=== PATIENT | female | born 1985 ===

== ENCOUNTER 2021-11-02 01:41 | Emergency (ER) | payer SELFPAY ==
[2021-11-02 02:28] LABS: Basophils % (Auto) 0.6 % (0.0-1.8); Eosinophils # (Auto) 0.1 K/mm3 (0.0-0.4); Eosinophils % (Auto) 1.5 % (0.0-4.3); Hematocrit 46.3 % (30.3-42.9); Hemoglobin 15.2 gm/dl (10.1-14.3); Lymphocytes # (Auto) 1.3 K/mm3 (1.2-5.4); Lymphocytes % (Auto) 25.2 % (13.4-35.0); Mean Corpuscular HGB Conc 33 % (30-34); Mean Corpuscular Volume 103 fl (79-97); Monocytes # (Auto) 0.5 K/mm3 (0.0-0.8); Monocytes % (Auto) 9.6 % (0.0-7.3); Platelet Count 235 K/mm3 (140-440); Red Blood Count 4.51 M/mm3 (3.65-5.03); Red Cell Distribution Width 13.1 % (13.2-15.2)
[2021-11-02 02:38] LABS: Bilirubin,Urine NEG (Negative); Blood,Urine NEG (Negative); Color,Urine Straw (Yellow); Protein,Urine <15 mg/dL mg/dL (Negative); RBC,Urine < 1.0 /HPF (0.0-6.0); Urobilinogen,Urine < 2.0 mg/dL (<2.0); WBC,Urine < 1.0 /HPF (0.0-6.0)
[2021-11-02 02:43] LABS: BUN/Creatinine Ratio 18; Blood Urea Nitrogen 14 mg/dL (7-17); Hemolysis Index 7
[2021-11-02 02:48] LABS: Amphetamine Screen,Urine PRESUMPTIVE NEGATIVE; Benzodiazepines Screen,Urine PRESUMPTIVE NEGATIVE; Cannabinoid Screen,Urine PRESUMPTIVE NEGATIVE; Cocaine Screen,Urine PRESUMPTIVE NEGATIVE; Methadone Screen,Urine PRESUMPTIVE POSITIVE; Opiate Screen,Urine PRESUMPTIVE NEGATIVE
--- NOTE | 2021-11-02 03:23 | Emergency Department Report ---
ED Psych HPI - General Chief Complaint: Psych Stated Complaint: SUICIDAL IDEATIONS Time Seen by Provider: 11/02/21 02:02 Source: police Mode of arrival: Ambulatory - History of Present Illness Initial Comments: Chief complaint: "1013" History obtained from police records clerk and patient HPI: This is a 36-year-old female with history of alcohol dependence, opioid dependence on methadone, anxiety and depression who presents in police custody on 101. and several children witnessed patient cutting herself left forearm with a toothbrush. She was destructive to the home. She was verbally aggressive to and several children. She denies suicidal ideation. Abnormal behavior prompted medical staff at the shelter to have patient transported to the emergency department for psychiatric care. Patient is very upset. She suspects that her is attempting to take away her home and her children. She also suspects that her is manipulating social situation for his own benefit. Patient denies suicidal or homicidal ideation. She denies hallucinations. She denies cutting herself although police records clerk states that child witnessed patient cutting her self. Medication: [facility] senior grants officer did not complete 1013 form prior to arrival. He requested a copy of our 1013 form. Complaint: other (Self-mutilation witnessed by children has been) -: This evening Associated Psychiatric Symptoms: other (Abnormal behavior) Quality: constant Improves With: none Worsens With: none Context: recent alcohol abuse, other (History of opioid abuse, previously took methadone) Treatments Prior to Arrival: other (Police transport) If Self Harm: self-inflicted trauma - Related Data Allergies Allergy/AdvReac Type Severity Reaction Status Date / Time No Known Allergies Allergy Verified 11/02/21 02:03 ED Review of Systems ROS: Stated complaint: SUICIDAL IDEATIONS Other details as noted in HPI Comment: All other systems reviewed and negative Constitutional: denies: chills, fever, malaise Respiratory: denies: cough, shortness of breath Gastrointestinal: denies: abdominal pain, nausea, vomiting Psychiatric: anxiety, depression ED Past Medical Hx - Past Medical History Previous Medical History?: Yes Hx Psychiatric Treatment: Yes (Anxiety, depression, alcohol dependence) Additional medical history: DRUG ABUSE - Surgical History Past Surgical History?: No - Social History Substance Use Type: Alcohol, Other (Opioid medication) ED Physical Exam - General Limitations: Altered Mental Status General appearance: alert, in no apparent distress, other (Pressured speech, agitated) - Head Head exam: Present: atraumatic, normocephalic - Eye Eye exam: Present: normal appearance - ENT ENT exam: Present: mucous membranes moist - Neck Neck exam: Present: normal inspection, full ROM, other (Superficial ecchymoses right neck) - Respiratory Respiratory exam: Present: normal lung sounds bilaterally. Absent: respiratory distress, wheezes, rales, rhonchi - Cardiovascular Cardiovascular Exam: Present: regular rate, normal rhythm, normal heart sounds. Absent: systolic murmur, diastolic murmur, rubs, gallop - GI/Abdominal GI/Abdominal exam: Present: soft, normal bowel sounds. Absent: distended, tenderness, guarding, rebound - Extremities Exam Extremities exam: Present: other (Linear excoriation superficial lacerations l eft forearm numerous) - Back Exam Back exam: Present: normal inspection - Neurological Exam Neurological exam: Present: alert, oriented X3 - Psychiatric Psychiatric exam: Present: agitated, other (Pressured speech agitated labile mood) - Skin Skin exam: Present: warm, dry, normal color. Absent: rash ED Course Vital Signs 11/02/21 05:19 Temperature 98.1 F Pulse Rate 81 Respiratory 19 Rate Blood Pressure 136/86 [Left] O2 Sat by Pulse 94 Oximetry ED Medical Decision Making - Lab Data Result diagrams: 11/02/21 02:13 11/02/21 02:13 Laboratory Results - last 24 hr 11/02/21 11/02/21 11/02/21 02:13 02:13 02:13 WBC 5.1 RBC 4.51 Hgb 15.2 H Hct 46.3 H MCV 103 H MCH 34 H MCHC 33 RDW 13.1 L Plt Count 235 Lymph % (Auto) 25.2 [place] % (Auto) 9.6 H Eos % (Auto) 1.5 Baso % (Auto) 0.6 Lymph # (Auto) 1.3 [place] # (Auto) 0.5 Eos # (Auto) 0.1 Baso # (Auto) 0.0 Seg Neutrophils % 63.1 Seg Neutrophils # 3.2 Sodium 143 Potassium 3.7 Chloride 103.3 Carbon Dioxide 25 Anion Gap 18 BUN 14 Creatinine 0.8 Estimated GFR > 60 BUN/Creatinine Ratio 18 Glucose 93 Calcium 9.0 HCG, Qual Urine Color Urine Turbidity Urine pH Ur Specific [place] Urine Protein Urine Glucose (UA) Urine Ketones Urine Blood Urine Nitrite Urine Bilirubin Urine Urobilinogen Ur Leukocyte Esterase Urine WBC (Auto) Urine RBC (Auto) U Epithel Cells (Auto) Salicylates < 0.3 L Urine Opiates Screen Urine Methadone Screen Acetaminophen Ur Barbiturates Screen Ur Phencyclidine Scrn Ur Amphetamines Screen U Benzodiazepines Scrn Urine Cocaine Screen U Marijuana (THC) Screen Drugs of Abuse Note Plasma/Serum Alcohol 11/02/21 11/02/21 11/02/21 02:13 02:13 02:13 WBC RBC Hgb Hct MCV MCH MCHC RDW Plt Count Lymph % (Auto) [place] % (Auto) Eos % (Auto) Baso % (Auto) Lymph # (Auto) [place] # (Auto) Eos # (Auto) Baso # (Auto) Seg Neutrophils % Seg Neutrophils # Sodium Potassium Chloride Carbon Dioxide Anion Gap BUN Creatinine Estimated GFR BUN/Creatinine Ratio Glucose Calcium HCG, Qual Negative Urine Color Urine Turbidity Urine pH Ur Specific [place] Urine Protein Urine Glucose (UA) Urine Ketones Urine Blood Urine Nitrite Urine Bilirubin Urine Urobilinogen Ur Leukocyte Esterase Urine WBC (Auto) Urine RBC (Auto) U Epithel Cells (Auto) Salicylates Urine Opiates Screen Urine Methadone Screen Acetaminophen 5.0 L Ur Barbiturates Screen Ur Phencyclidine Scrn Ur Amphetamines Screen U Benzodiazepines Scrn Urine Cocaine Screen U Marijuana (THC) Screen Drugs of Abuse Note Plasma/Serum Alcohol 0.25 H 11/02/21 11/02/21 Unknown Unknown WBC RBC Hgb Hct MCV MCH MCHC RDW Plt Count Lymph % (Auto) [place] % (Auto) Eos % (Auto) Baso % (Auto) Lymph # (Auto) [place] # (Auto) Eos # (Auto) Baso # (Auto) Seg Neutrophils % Seg Neutrophils # Sodium Potassium Chloride Carbon Dioxide Anion Gap BUN Creatinine Estimated GFR BUN/Creatinine Ratio Glucose Calcium HCG, Qual Urine Color Straw Urine Turbidity Clear Urine pH 5.0 Ur Specific [place] 1.005 Urine Protein <15 mg/dl Urine Glucose (UA) Neg Urine Ketones Neg Urine Blood Neg Urine Nitrite Neg Urine Bilirubin Neg Urine Urobilinogen < 2.0 Ur Leukocyte Esterase Neg Urine WBC (Auto) < 1.0 Urine RBC (Auto) < 1.0 U Epithel Cells (Auto) < 1.0 Salicylates Urine Opiates Screen Presumptive negative Urine Methadone Screen Presumptive positive Acetaminophen Ur Barbiturates Screen Presumptive negative Ur Phencyclidine Scrn Presumptive negative Ur Amphetamines Screen Presumptive negative U Benzodiazepines Scrn Presumptive negative Urine Cocaine Screen Presumptive negative U Marijuana (THC) Screen Presumptive negative Drugs of Abuse Note Disclamer Plasma/Serum Alcohol - Medical Decision Making 1. Acute alcohol intoxication: Patient is ambulatory. She is maintaining airway. Blood alcohol 0.25 2. Self-mutilation: Patient has superficial lacerations of the left forearm which does not require suture repair. Tdap booster ordered. 3. Abnormal behavior likely due to acute alcohol intoxication. Will need reassessment once sober. Mental health evaluation requested. I have reviewed labs. CBC chemistry within normal limits hCG negative urinalysis without signs of infection. UDS positive for methadone. Patient stated that she does take this medication. Critical care attestation.: If time is entered above; I have spent that time in minutes in the direct care of this critically ill patient, excluding procedure time. ED Disposition Clinical Impression: Acute alcohol intoxication, Opioid dependence Disposition: 30 STILL A PATIENT Is pt being admited?: No Does the pt Need Aspirin: No Condition: Stable
[2021-11-02] MEDS ORDERED: TETANUS,DIPH,PERTUSS(ACELL) VACCINE 0.5 ML SYRINGE IM ONE (03:29)
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
[2021-11-02] MEDS: FLUoxetine 20 MG CAP PO SCH (10:15)
[2021-11-02] MEDS: hydrOXYzine PAMOATE 25 MG CAP PO SCH ×2 (10:16→22:30)
[2021-11-02] MEDS: METHADONE 10 MG TAB PO SCH (10:44)
[2021-11-02] MEDS ORDERED: chlordiazePOXIDE 25 MG CAP PO PRN ×2 (11:58)
[2021-11-02] MEDS ORDERED: LORazepam 2 MG TAB PO PRN (11:58)
[2021-11-02] MEDS ORDERED: METOCLOPRAMIDE 10 MG TAB PO PRN (11:59)
[2021-11-02] MEDS ORDERED: HALOPERIDOL LACTATE 5 MG/1 ML INJ IM PRN (11:59)
[2021-11-02] MEDS ORDERED: diphenhydrAMINE 25 MG CAP PO PRN (11:59)
[2021-11-02] MEDS ORDERED: ACETAMINOPHEN 325 MG TAB PO PRN (11:59)
--- NOTE | 2021-11-02 12:01 | Event Note ---
Date: 11/02/21 The patient was evaluated in the emergency department for symptoms described in the history of present illness. He/she was evaluated in the context of the global COVID-19 pandemic, which necessitated consideration that the patient might be at risk for infection with the virus that causes COVID-19. Institutional protocols and algorithms that pertain to the evaluation of patients at risk for COVID-19 are in a state of rapid change based on information released by regulatory bodies including the CDC and federal and state organizations. These policies and algorithms were followed during the patient's care in the emergency department. Please note that these policies, procedures and recommendations changed on a rapid basis. Laboratory studies, vital signs, nursing documentation, ER documentation, and psychiatric documentation are reviewed and appreciated. Nursing team reports no acute events this morning or concerns. The patient is awake and at this point in time does not appear to be in any acute distress The patient was deemed medically suitable for psychiatric disposition and placement during her initial ER evaluation. The patient continues to remain medically suitable for psychiatric placement and disposition. sHe is currently pending psychiatric placement. Holding orders initiated. Psychiatric team have recommended 1013/involuntary confinement, and inpatient disposition. Vital Signs 11/02/21 11/02/21 11/02/21 05:19 05:41 11:14 Temperature 98.1 F 98.2 F Pulse Rate 81 74 Respiratory 19 18 18 Rate Blood Pressure 136/86 102/59 [Left] O2 Sat by Pulse 94 94 98 Oximetry Lab Results 11/02/21 11/02/21 11/02/21 Range/Units 02:13 02:13 02:13 WBC 5.1 (4.5-11.0) K/mm3 RBC 4.51 (3.65-5.03) M/mm3 Hgb 15.2 H (10.1-14.3) gm/dl Hct 46.3 H (30.3-42.9) % MCV 103 H (79-97) fl MCH 34 H (28-32) pg MCHC 33 (30-34) % RDW 13.1 L (13.2-15.2) % Plt Count 235 (140-440) K/mm3 Lymph % (Auto) 25.2 (13.4-35.0) % [place] % (Auto) 9.6 H (0.0-7.3) % Eos % (Auto) 1.5 (0.0-4.3) % Baso % (Auto) 0.6 (0.0-1.8) % Lymph # (Auto) 1.3 (1.2-5.4) K/mm3 [place] # (Auto) 0.5 (0.0-0.8) K/mm3 Eos # (Auto) 0.1 (0.0-0.4) K/mm3 Baso # (Auto) 0.0 (0.0-0.1) K/mm3 Seg Neutrophils % 63.1 (40.0-70.0) % Seg Neutrophils # 3.2 (1.8-7.7) K/mm3 Sodium 143 (137-145) mmol/L Potassium 3.7 (3.6-5.0) mmol/L Chloride 103.3 (98-107) mmol/L Carbon Dioxide 25 (22-30) mmol/L Anion Gap 18 mmol/L BUN 14 (7-17) mg/dL Creatinine 0.8 (0.6-1.2) mg/dL Estimated GFR > 60 ml/min BUN/Creatinine Ratio 18 % Glucose 93 (65-100) mg/dL Calcium 9.0 (8.4-10.2) mg/dL HCG, Qual (Negative) Urine Color (Yellow) Urine Turbidity (Clear) Urine pH (5.0-7.0) Ur Specific [place] (1.003-1.030) Urine Protein (Negative) mg/dL Urine Glucose (UA) (Negative) mg/dL Urine Ketones (Negative) mg/dL Urine Blood (Negative) Urine Nitrite (Negative) Urine Bilirubin (Negative) Urine Urobilinogen (<2.0) mg/dL Ur Leukocyte Esterase (Negative) Urine WBC (Auto) (0.0-6.0) /HPF Urine RBC (Auto) (0.0-6.0) /HPF U Epithel Cells (Auto) (0-13.0) /HPF Salicylates < 0.3 L (2.8-20.0) mg/dL Urine Opiates Screen Urine Methadone Screen Acetaminophen (10.0-30.0) ug/mL Ur Barbiturates Screen Ur Phencyclidine Scrn Ur Amphetamines Screen U Benzodiazepines Scrn Urine Cocaine Screen U Marijuana (THC) Screen Drugs of Abuse Note Plasma/Serum Alcohol (0-0.07) % SARS-CoV-2 (PCR) (Negative) 11/02/21 11/02/21 11/02/21 Range/Units 02:13 02:13 02:13 WBC (4.5-11.0) K/mm3 RBC (3.65-5.03) M/mm3 Hgb (10.1-14.3) gm/dl Hct (30.3-42.9) % MCV (79-97) fl MCH (28-32) pg MCHC (30-34) % RDW (13.2-15.2) % Plt Count (140-440) K/mm3 Lymph % (Auto) (13.4-35.0) % [place] % (Auto) (0.0-7.3) % Eos % (Auto) (0.0-4.3) % Baso % (Auto) (0.0-1.8) % Lymph # (Auto) (1.2-5.4) K/mm3 [place] # (Auto) (0.0-0.8) K/mm3 Eos # (Auto) (0.0-0.4) K/mm3 Baso # (Auto) (0.0-0.1) K/mm3 Seg Neutrophils % (40.0-70.0) % Seg Neutrophils # (1.8-7.7) K/mm3 Sodium (137-145) mmol/L Potassium (3.6-5.0) mmol/L Chloride (98-107) mmol/L Carbon Dioxide (22-30) mmol/L Anion Gap mmol/L BUN (7-17) mg/dL Creatinine (0.6-1.2) mg/dL Estimated GFR ml/min BUN/Creatinine Ratio % Glucose (65-100) mg/dL Calcium (8.4-10.2) mg/dL HCG, Qual Negative (Negative) Urine Color (Yellow) Urine Turbidity (Clear) Urine pH (5.0-7.0) Ur Specific [place] (1.003-1.030) Urine Protein (Negative) mg/dL Urine Glucose (UA) (Negative) mg/dL Urine Ketones (Negative) mg/dL Urine Blood (Negative) Urine Nitrite (Negative) Urine Bilirubin (Negative) Urine Urobilinogen (<2.0) mg/dL Ur Leukocyte Esterase (Negative) Urine WBC (Auto) (0.0-6.0) /HPF Urine RBC (Auto) (0.0-6.0) /HPF U Epithel Cells (Auto) (0-13.0) /HPF Salicylates (2.8-20.0) mg/dL Urine Opiates Screen Urine Methadone Screen Acetaminophen 5.0 L (10.0-30.0) ug/mL Ur Barbiturates Screen Ur Phencyclidine Scrn Ur Amphetamines Screen U Benzodiazepines Scrn Urine Cocaine Screen U Marijuana (THC) Screen Drugs of Abuse Note Plasma/Serum Alcohol 0.25 H (0-0.07) % SARS-CoV-2 (PCR) (Negative) 11/02/21 11/02/21 11/02/21 Range/Units 08:50 Unknown Unknown WBC (4.5-11.0) K/mm3 RBC (3.65-5.03) M/mm3 Hgb (10.1-14.3) gm/dl Hct (30.3-42.9) % MCV (79-97) fl MCH (28-32) pg MCHC (30-34) % RDW (13.2-15.2) % Plt Count (140-440) K/mm3 Lymph % (Auto) (13.4-35.0) % [place] % (Auto) (0.0-7.3) % Eos % (Auto) (0.0-4.3) % Baso % (Auto) (0.0-1.8) % Lymph # (Auto) (1.2-5.4) K/mm3 [place] # (Auto) (0.0-0.8) K/mm3 Eos # (Auto) (0.0-0.4) K/mm3 Baso # (Auto) (0.0-0.1) K/mm3 Seg Neutrophils % (40.0-70.0) % Seg Neutrophils # (1.8-7.7) K/mm3 Sodium (137-145) mmol/L Potassium (3.6-5.0) mmol/L Chloride (98-107) mmol/L Carbon Dioxide (22-30) mmol/L Anion Gap mmol/L BUN (7-17) mg/dL Creatinine (0.6-1.2) mg/dL Estimated GFR ml/min BUN/Creatinine Ratio % Glucose (65-100) mg/dL Calcium (8.4-10.2) mg/dL HCG, Qual (Negative) Urine Color Straw (Yellow) Urine Turbidity Clear (Clear) Urine pH 5.0 (5.0-7.0) Ur Specific [place] 1.005 (1.003-1.030) Urine Protein <15 mg/dl (Negative) mg/dL Urine Glucose (UA) Neg (Negative) mg/dL Urine Ketones Neg (Negative) mg/dL Urine Blood Neg (Negative) Urine Nitrite Neg (Negative) Urine Bilirubin Neg (Negative) Urine Urobilinogen < 2.0 (<2.0) mg/dL Ur Leukocyte Esterase Neg (Negative) Urine WBC (Auto) < 1.0 (0.0-6.0) /HPF Urine RBC (Auto) < 1.0 (0.0-6.0) /HPF U Epithel Cells (Auto) < 1.0 (0-13.0) /HPF Salicylates (2.8-20.0) mg/dL Urine Opiates Screen Presumptive negative Urine Methadone Screen Presumptive positive Acetaminophen (10.0-30.0) ug/mL Ur Barbiturates Screen Presumptive negative Ur Phencyclidine Scrn Presumptive negative Ur Amphetamines Screen Presumptive negative U Benzodiazepines Scrn Presumptive negative Urine Cocaine Screen Presumptive negative U Marijuana (THC) Screen Presumptive negative Drugs of Abuse Note Disclamer Plasma/Serum Alcohol (0-0.07) % SARS-CoV-2 (PCR) Negative (Negative)
[2021-11-02] MEDS: MULTIVITAMINS ,THERAPEUTIC TAB PO SCH (15:26)
[2021-11-02] MEDS: LORazepam 2 MG TAB PO PRN (15:28)
[2021-11-03] MEDS: LORazepam 2 MG TAB PO PRN (04:05)
[2021-11-03] MEDS: FLUoxetine 20 MG CAP PO SCH (10:20)
[2021-11-03] MEDS: METHADONE 10 MG TAB PO SCH (10:20)
[2021-11-03] MEDS: hydrOXYzine PAMOATE 25 MG CAP PO SCH ×2 (10:21→22:00)
[2021-11-03] MEDS: MULTIVITAMINS ,THERAPEUTIC TAB PO SCH (10:21)
--- NOTE | 2021-11-03 22:13 | Emergency Department Report ---
Blank Doc - Documentation Documentation: 36-year-old on 1013 currently awaiting psychiatric placement. Vital signs wit hin normal range
[2021-11-04 09:22] VITALS: BP 130/94
[2021-11-04] MEDS: FLUoxetine 20 MG CAP PO SCH (09:53)
[2021-11-04] MEDS: METHADONE 10 MG TAB PO SCH (09:53)
[2021-11-04] MEDS: MULTIVITAMINS ,THERAPEUTIC TAB PO SCH (09:54)
[2021-11-04] MEDS: hydrOXYzine PAMOATE 25 MG CAP PO SCH (09:54)
--- NOTE | 2021-11-04 13:09 | Event Note ---
Vital signs stable. No acute medical issues. Awaiting placement at psychiatric facility.
--- NOTE | 2021-11-04 14:59 | Consultation ---
History of Present Illness - Reason for Consult Consult date: 11/04/21 Reason for consult: SI - History of Present Psychiatric Illness The patient was seen today. She is calm. alert and oriented x3. She denies being depressed stating she is doing well. She reports sleep and appetite as good. The patient reports wanting to go back to work. She denies any current suicidal/homicidal ideation and denies hallucinations. REVIEW OF SYSTEMS Constitutional: Negative for weight loss ENT: Negative for stridor Respiratory: Negative for cough or hemoptysis All other systems reviewed and are negative MENTAL STATUS EXAMINATION General Appearance and Behavior: Age appropriate, good hygiene, wearing appropriate clothes. calm, cooperative Cooperation: Cooperative Psychomotor Behavior: Psychomotor normal Mood: Calm Affect and affective range: congruent with stated mood Thought Process: Goal directed Thought Content: reality oriented Speech:Normal Suicidal Ideation: Denies Homicidal Ideation: Denies Hallucinations: Denies Delusions:None Impulse Control: Limited Insight and Judgment: Limited insight and good judgment Memory: Limited Attention: attentive Orientation: a/o x 3 Assessment (1) Major depressive disorder (2) Alcohol use disorder Current Visit: Yes Status: Acute Continue home medications. Dc 1013 Treatment Plan Continue home medications. Risks, benefits and alternatives of medications discussed with the patient, questions answered and consent obtained from patient. PSYCHOTHERAPY: Supportive psychotherapy provided MEDICAL: Per primary team DELIRIUM PRECAUTIONS: Please re-orient patient frequently, keep lights on during the day, and minimize benzodiazepines and opiates as these medications could worsen patient's confusion. RN HEMODIALYSIS: per primary DISPOSITION: Do not recommend acute psychiatric treatment. [employer] will provide patient with psychiatric outpatient resources and safety plan. Will sign off. Please contact with any questions and/or concerns. Case discussed with Dr. Nuñez who agrees with current disposition Medications and Allergies Medications and Allergies Allergies Allergy/AdvReac Type Severity Reaction Status Date / Time No Known Allergies Allergy Verified 11/02/21 02:03 Active Meds: Active Medications Acetaminophen (Acetaminophen 325 Mg Tab) 650 mg PO Q6HR PRN PRN Reason: PAIN Chlordiazepoxide HCl (Chlordiazepoxide 25 Mg Cap) 50 mg PO Q1HR PRN PRN Reason: NAHOMY-Jayme 8-15 Last Admin: 11/03/21 10:20 Dose: 50 mg Chlordiazepoxide HCl (Chlordiazepoxide 25 Mg Cap) 100 mg PO Q1HR PRN PRN Reason: Fallon 16-25 Diphenhydramine HCl (Diphenhydramine 25 Mg Cap) 50 mg PO QHS PRN PRN Reason: Insomnia Last Admin: 11/02/21 15:36 Dose: 50 mg Fluoxetine HCl (Fluoxetine 20 Mg Cap) 20 mg PO DAILY [facility] Last Admin: 11/04/21 09:53 Dose: 20 mg Haloperidol Lactate (Haloperidol Lactate 5 Mg/1 Ml Inj) 5 mg IM Q6HR PRN PRN Reason: Agitation Hydroxyzine Pamoate (Hydroxyzine Pamoate 25 Mg Cap) 25 mg PO BID [facility] Last Admin: 11/04/21 09:54 Dose: 25 mg Lorazepam (Lorazepam 2 Mg Tab) 2 mg PO Q1HR PRN PRN Reason: NAHOMY-Jayme 8-15 Last Admin: 11/03/21 04:05 Dose: 2 mg Lorazepam (Lorazepam 2 Mg Tab) 4 mg PO Q1HR PRN PRN Reason: Fallon 16-25 Methadone HCl (Methadone 10 Mg Tab) 10 mg PO DAILY [facility] Last Admin: 11/04/21 09:53 Dose: 10 mg Metoclopramide HCl (Metoclopramide 10 Mg Tab) 10 mg PO Q6HR PRN PRN Reason: Nausea Multivitamins (Multivitamins ,Therapeutic Tab) 1 each PO QDAY [facility] Last Admin: 11/04/21 09:54 Dose: 1 each Mental Status Exam - Vital signs Last Vital Signs Temp 97.8 F 11/04/21 09:21 Pulse 103 H 11/04/21 09:21 Resp 18 11/04/21 09:21 BP 130/94 11/04/21 09:21 Pulse Ox 99 11/04/21 10:14 Results Result Diagrams: 11/02/21 02:13 11/02/21 02:13 All other labs normal.
== END 2021-11-04 16:03 | disposition home or self-care (01) ==
LOC: ED 01:41
DX: F10.129 Alcohol abuse with intoxication, unspecified (principal); F11.20 Opioid dependence, uncomplicated; Z20.822 Contact with and (suspected) exposure to COVID-19
CPT/HCPCS: 36415; 80048; 80307; 81001; 84703; 85025; 90471; 90715; 99284; U0003; 80320; G0480